=== PATIENT | female | born 1975 ===

== ENCOUNTER 2017-11-17 06:54 | Day surgery (SDC) | payer OTHER ==
[2017-11-13 14:31] VITALS: BMI 29.4
[2017-11-17] MEDS ORDERED: Propofol 10 mg/ml Inj (20 ML) ONE (08:36)
--- NOTE | 2017-11-17 11:04 | PCM.SURG1 ---
Surgeon's Initial Post Op Note - Surgeon's Notes Surgeon: Marcie Alberto MD Utilities Ground Worker: none Type of Anesthesia: General LMA Pre-Operative Diagnosis: Abnormal uterien bleeding, submucosal myoma Operative Findings: 10-12 week size uteurs, multipaou cerviox, 1.5cm submucsosal myoma, bilateral ostia visluzesd Post-Operative Diagnosis: same as above Operation Performed: Hysteroscopic myoemcotmy, fractional dilation and currettage Specimen/Specimens Removed: endocervical currettings, endometiral curretting, submucosal myoma Estimated Blood Loss: EBL {In ML}: 5 Blood Products Given: N/A Drains Used: No Drains Post-Op Condition: Good Date of Surgery/Procedure: 11/17/17 Time of Surgery/Procedure: 08:35
[2017-11-17 12:02] VITALS: BP 115/61; PULSE 75; RESP 20; TEMP 97.8; O2SAT 97
--- NOTE | 2017-11-17 23:48 | OP ---
PROCEDURE DATE: 11/17/2017 SURGEON: Marcie Alberto MD JUNK REMOVAL SPECIALIST: None. TYPE OF ANESTHESIA: General LMA. PREOPERATIVE DIAGNOSES: Abnormal uterine bleeding, submucosal myoma. POSTOPERATIVE DIAGNOSES: Abnormal uterine bleeding, submucosal myoma. OPERATIVE FINDINGS: A 10 to 12 weeks' size uterus, multiparous cervix, 1.5 cm submucosal myoma, bilateral ostia visualized. OPERATION PERFORMED: Hysteroscopic myomectomy, fractional dilatation and curettage. SPECIMEN: Endocervical curettings, endometrial curettings, submucosal myoma. ESTIMATED BLOOD LOSS: 5 mL. BLOOD PRODUCTS: None. COMPLICATIONS: None. DESCRIPTION OF PROCEDURE: The patient was taken to the operating room where she was given general anesthesia. Once it was found to be adequate, she was placed on the operating table in a dorsal supine position with the legs supported using stirrups. The patient was then prepped and draped in the usual sterile fashion. A time-out confirmed correct patient and correct procedure. Bimanual exam was performed. A Palomares retractor was placed in the anterior and posterior fornix of the vagina. Cervix was adequately visualized. A single-tooth tenaculum was placed on the anterior lip of the cervix. Endocervical curettings were obtained with a Kevorkian curette and sent to Pathology on [facility]. The uterus was then sounded 10 cm. Following this, the cervix was sequentially dilated to allow for introduction of the hysteroscope under direct visualization and using normal saline as distention media. Bilateral ostia were visualized. There was a submucosal mass noted to be 1.5 cm. Mechanical mesh device was then inserted and the mass was then resected completely carefully with good hemostasis noted. The MyoSure device was then removed. A gentle curettage was done. The specimen was sent to pathology, labeled as endometrial curettings. All instruments were removed. There was good hemostasis at then tenaculum puncture site. At the end of the procedure, all needle, sponge, and instrument counts were noted and correct x2. The patient tolerated the procedure well and transferred to the recovery room in stable condition. Marcie Alberto MD
== END 2017-11-17 12:06 | disposition home or self-care (01) ==
LOC: C.SDS 06:54
PROVIDERS: ATTEND Obstetrics & Gynecology
DX: D25.0 Submucous leiomyoma of uterus (principal); N93.9 Abnormal uterine and vaginal bleeding, unspecified; N84.0 Polyp of corpus uteri
CPT/HCPCS: 58561; 88305; J2001; J2405; J2704; J3010

== ENCOUNTER 2017-12-22 07:03 | Emergency (ER) | payer OTHER ==
[2017-12-22 07:04] VITALS: BMI 29.4
[2017-12-22 07:16] VITALS: O2SAT 98
[2017-12-22 08:12] LABS: BASO # 0.1 K/uL (0.0-0.2); BASO % 0.9 % (0.0-2.0); EOS # 0.3 K/uL (0.0-0.7); EOS % 5.4 % (0.0-4.0); HEMOGLOBIN 13.3 g/dL (11.0-16.0); LYMPH % 31.8 % (20.0-40.0); MEAN CELL VOLUME 86.4 fL (81.0-99.0); MEAN CORPUSCULAR HEMOGLOBIN 29.6 pg (27.0-31.0); MEAN CORPUSCULAR HGB CONC 34.3 g/dL (33.0-37.0); MONO # 0.5 K/uL (0.0-0.8); MONO % 7.9 % (0.0-10.0); NEUT # 3.4 K/uL (1.8-7.0); RBC 4.49 Mil/uL (3.80-5.20); RED CELL DISTRIBUTION WIDTH 14.4 % (11.5-14.5); WHITE BLOOD COUNT 6.3 K/uL (4.8-10.8)
[2017-12-22 08:19] LABS: INR 1.1; PROTHROMBIN TIME 11.5 SECONDS (9.7-12.2)
[2017-12-22 08:26] LABS: URINE BILIRUBIN NEGATIVE (NEGATIVE); URINE BLOOD 2+ (NEGATIVE); URINE CLARITY Hazy (Clear); URINE COLOR Red (YELLOW); URINE GLUCOSE (UA) NORMAL (Normal); URINE LEUKOCYTE ESTERASE NEG Leu/uL (Negative); URINE PROTEIN 2+ mg/dL (NEGATIVE); URINE UROBILINOGEN NORMAL mg/dL (0.2-1.0)
[2017-12-22 08:30] LABS: ALB/GLOB RATIO 1.3 (1.0-2.1); ALBUMIN 4.5 g/dL (3.5-5.0); ALT/SGPT 30 U/L (9-52); AST/SGOT 26 U/L (14-36); BLOOD UREA NITROGEN 12 mg/dL (7-17); GFR NON-AFRICAN AMERICAN > 60
[2017-12-22 08:35] LABS: HCG,QUALITATIVE URINE NEGATIVE (NEGATIVE)
--- NOTE | 2017-12-22 09:51 | C.PDOC ---
History Of Present Illness 42 year old female presents to the emergency department with complaints of intermittent vaginal bleeding status-post a cervical polyp removal on 11-19-17. Patient reports that over the past several days, her vaginal bleeding has worsened and she describes it as thick clots. Patient also reports pain associated with lower abdominal cramping and nausea, but denies dysuria, chest pain, shortness of breath, and diarrhea. Time Seen by Provider: 12/22/17 07:16 Chief Complaint (Nursing): Female Genitourinary History Per: Patient History/Exam Limitations: no limitations Onset/Duration Of Symptoms: Days Current Symptoms Are (Timing): Worse Location Of Pain/Discomfort: Other (lower abdomen) Quality Of Discomfort: Cramping Associated Symptoms: Other (vaginal bleeding). denies: Diarrhea, Chest Pain, Urinary Symptoms Past Medical History Reviewed: Historical Data, Nursing Documentation, Vital Signs Vital Signs: Last Vital Signs Temp 98 F 12/22/17 10:01 Pulse 78 12/22/17 10:01 Resp 18 12/22/17 10:01 BP 119/69 12/22/17 10:01 Pulse Ox 98 12/22/17 10:01 - Medical History PMH: Hypothyroidism Denies: Chronic Kidney Disease Surgical History: Appendectomy Family History: States: No Known Family Hx - Social History Hx Alcohol Use: No Hx Substance Use: No Review Of Systems Except As Marked, All Systems Reviewed And Found Negative. Cardiovascular: Negative for: Chest Pain Respiratory: Negative for: Shortness of Breath Gastrointestinal: Positive for: Abdominal Pain (cramping). Negative for: Diarrhea Genitourinary: Negative for: Dysuria Physical Exam - Physical Exam Appears: Non-toxic, No Acute Distress Skin: Warm, Dry Head: Atraumatic, Normacephalic Eye(s): bilateral: Normal Inspection Neck: Normal, Supple Chest: Symmetrical Cardiovascular: Rhythm Regular, No Murmur Respiratory: Normal Breath Sounds, No Rales, No Rhonchi, No Wheezing Gastrointestinal/Abdominal: Soft, No Tenderness, No Guarding, No Rebound Neurological/Psych: Oriented x3, Normal Speech, Normal Cognition ED Course And Treatment - Laboratory Results Result Diagrams: 12/22/17 08:02 12/22/17 08:02 O2 Sat by Pulse Oximetry: 98 (RA) Pulse Ox Interpretation: Normal Progress Note: Plan: Blood Bank Type and Screen. CMP. CBC. PTT. Prothrombin Time. Toradol 30mg IVP. HCG Qualitative Urine. Urinalysis Disposition - Disposition Referrals: Marcie Alberto MD [Staff Provider] - Disposition: HOME/ ROUTINE Disposition Time: 09:49 Condition: GOOD Additional Instructions: Follow up with the OBGYN today without fail. return if worsened. Instructions: Heavy Periods (DC) Forms: [employer] ([place]ayan) - Clinical Impression Clinical Impression: Menometrorrhagia - PA / [employer]ATH[employer] / Resident Statement MD/DO has reviewed & agrees with the documentation as recorded. - Scribe Statement The provider has reviewed the documentation as recorded by the Scribe (Tomasz Churchill) All medical record entries made by the Scribe were at my direction and personally dictated by me. I have reviewed the chart and agree that the record accurately reflects my personal performance of the history, physical exam, medical decision making, and the department course for this patient. I have also personally directed, reviewed, and agree with the discharge instructions and disposition.
[2017-12-22 10:01] VITALS: BP 119/69; PULSE 78; RESP 18; TEMP 98
== END 2017-12-22 10:01 | disposition home or self-care (01) ==
LOC: C.ER 07:03
DX: N92.1 Excessive and frequent menstruation with irregular cycle (principal)
CPT/HCPCS: 80053; 81001; 84703; 85025; 85610; 85730; 86850; 86900; 96374; 99285; J1885

== ENCOUNTER 2018-01-23 06:06 | Inpatient (IN) | payer OTHER ==
[2018-01-23] MEDS ORDERED: ceFAZolin IV 1 gm in Dextrose 1 GM/50 ML BAG IVPB ONE ×2 (07:47→08:01)
[2018-01-23] MEDS ORDERED: Bupivacaine 0.25% 20 ML INJ IJ ONE (07:47)
[2018-01-23] MEDS ORDERED: Midazolam 2 MG/2 ML VIAL ONE (07:57)
[2018-01-23] MEDS ORDERED: Propofol 10 mg/ml Inj (20 ML) ONE (07:58)
[2018-01-23] MEDS ORDERED: Bupivacaine-Epi 0.5%-1:200,000 PF Inj ONE (08:11)
[2018-01-23] MEDS ORDERED: Rocuronium 10 mg/ml (5 ml) ONE ×2 (08:26→10:30)
[2018-01-23] MEDS ORDERED: Lactated Ringer's 1,000 ML IV ONE ×2 (10:50→11:30)
[2018-01-23] MEDS ORDERED: Neostigmine Methylsulfate 3mg/3ml Syringe IV ONE (10:52)
[2018-01-23] MEDS ORDERED: Oxycodone/Acetaminophen 5/325 mg Tab PO PRN ×2 (10:55)
[2018-01-23] MEDS ORDERED: Lactated Ringer's 1,000 ML IV SCH (11:00)
[2018-01-23] MEDS: HYDROmorphone 0.5 mg/0.5 ml ISec IVP PRN ×3 (11:22→12:00)
[2018-01-23] MEDS ORDERED: HYDROmorphone 0.5 mg/0.5 ml ISec ONE (11:24)
[2018-01-23] MEDS: Simethicone 80 mg Chewtab PO SCH ×2 (14:06→22:02)
[2018-01-23] MEDS: cefOXitin IV 1 gm in Dextrose 1 GM/50 ML BAG IVPB SCH ×2 (14:15→22:56)
--- NOTE | 2018-01-23 15:10 | PCM.OP ---
Operative Report - Operative Report Date of Surgery/Procedure: 01/23/18 Time of Surgery/Procedure: 08:00 Surgeon: lindsey Denson md Lift Team Technician: Duane Davalos md Anesthesia/Sedation: GET Pre-Operative Diagnosis: pelvic pain , pelvic adhesions , fibroid uterus ,abnormal bleeding Post-Operative Diagnosis: pelvic pain , pelvic adhesions , fibroid uterus ,abnormal bleeding Indication for Surgery: called into the operative room to assist Dr. davalos with difficult dissection during hysterectomy . Dr davalos had already docled the da scottie robot and performed tthe cystocopy and ureteral catheterization Operative Findings: pelvic adhesions Procedure/Operation Description: robotic da scottie bilateral ureterolysis. called into the operative room to assist Dr. davalos with difficult dissection during hysterectomy . Dr davalos had already docled the da scottie robot and performed tthe cystocopy and ureteral catheterizatio. At this point, we proceeded with the left ureterolysis. The ureter appeared to dilated and it was clearly identified utilizing fluorescent technology. An incision was made on the peritoneum at the top of the pelvic brim, and incision was then carried down all the way opening the peritoneum and all the way down from the pelvic brim all the way down to the ovarian fossa extending the incision below the ovary. It was a progressive dissection where the ureter was progressively lateralized and the peritoneum medialized, thus freeing the ureter all the way down to the crossing of the uterine vessels. After this was done and the ureter was freed and lateralized and a large area of peritoneum, which had been opened up was excised and sent to pathology. At this point, after ureter had been identified, we were able to elevate the ovary and dissect it from the pelvic side wall in the ovarian fossa. At this point, we proceeded with the left ovariolysis. The ovary was gently dissected and elevated off the ovarian fossa. At this point, we proceeded with the right ureterolysis. The ureter was identified and again utilizing florescent technology, the retroperitoneal space was entered and a full dissection was performed entering the retroperitoneal space and dissecting the ureter, removing the ureter laterally and the peritoneum medially. A full dissection was performed all the way down to the ovarian fossa, on the crossing of the uterine arteries. At this point, we proceeded with a right ovariolysis. The ovary was progressively elevated, and the ovary was finally elevated. At this point the robotic console was handed back to Dr. Davalos Estimated Blood Loss: 10cc Complications: none Discharge & Condition: pt to recovery inexcellent condition
[2018-01-23 21:07] VITALS: RESP 20
[2018-01-24] MEDS: Simethicone 80 mg Chewtab PO SCH ×3 (05:57→21:30)
[2018-01-24] MEDS: cefOXitin IV 1 gm in Dextrose 1 GM/50 ML BAG IVPB SCH (06:35)
[2018-01-24 08:41] LABS: MEAN CELL VOLUME 86.6 fL (81.0-99.0); MEAN CORPUSCULAR HEMOGLOBIN 29.3 pg (27.0-31.0); MEAN CORPUSCULAR HGB CONC 33.8 g/dL (33.0-37.0); MEAN PLATELET VOLUME 8.9 fL (7.2-11.7); RBC 3.82 Mil/uL (3.80-5.20); RED CELL DISTRIBUTION WIDTH 13.7 % (11.5-14.5)
[2018-01-24 08:45] LABS: ALB/GLOB RATIO 1.2 (1.0-2.1); ALBUMIN 3.3 g/dL (3.5-5.0); ALT/SGPT 22 U/L (9-52); AST/SGOT 16 U/L (14-36); BLOOD UREA NITROGEN 8 mg/dL (7-17); CALCIUM 8.9 mg/dl (8.6-10.4); GFR NON-AFRICAN AMERICAN > 60; HEMOGLOBIN 11.2 g/dL (11.0-16.0); WHITE BLOOD COUNT 11.4 K/uL (4.8-10.8)
--- NOTE | 2018-01-24 12:39 | CP.PCM.DIS ---
Provider - Provider Date of Admission: 01/23/18 10:53 Attending physician: Marcie Alberto MD Time Spent in preparation of Discharge (in minutes): 20 Diagnosis - Discharge Diagnosis (1) History of robot-assisted laparoscopic hysterectomy Status: Acute Priority: Medium Hospital Course - Lab Results Lab Results: Most Recent Lab Values WBC 11.4 K/uL (4.8-10.8) H D 01/24/18 08:24 RBC 3.82 Mil/uL (3.80-5.20) 01/24/18 08:24 Hgb 11.2 g/dL (11.0-16.0) D 01/24/18 08:24 Hct 33.0 % (34.0-47.0) L 01/24/18 08:24 MCV 86.6 fL (81.0-99.0) 01/24/18 08:24 MCH 29.3 pg (27.0-31.0) 01/24/18 08:24 MCHC 33.8 g/dL (33.0-37.0) 01/24/18 08:24 RDW 13.7 % (11.5-14.5) 01/24/18 08:24 Plt Count 218 K/uL (130-400) 01/24/18 08:24 MPV 8.9 fL (7.2-11.7) 01/24/18 08:24 Sodium 138 mmol/L (132-148) 01/24/18 08:24 Potassium 3.9 mmol/L (3.6-5.2) 01/24/18 08:24 Chloride 105 mmol/L (98-107) 01/24/18 08:24 Carbon Dioxide 25 mmol/L (22-30) 01/24/18 08:24 Anion Gap 12 (10-20) 01/24/18 08:24 BUN 8 mg/dL (7-17) 01/24/18 08:24 Creatinine 0.7 mg/dL (0.7-1.2) 01/24/18 08:24 Est GFR ( Amer) > 60 01/24/18 08:24 Est GFR (Non-Af Amer) > 60 01/24/18 08:24 Random Glucose 110 mg/dL (65-105) H 01/24/18 08:24 Calcium 8.9 mg/dl (8.6-10.4) 01/24/18 08:24 Total Bilirubin 0.4 mg/dL (0.2-1.3) 01/24/18 08:24 AST 16 U/L (14-36) 01/24/18 08:24 ALT 22 U/L (9-52) 01/24/18 08:24 Alkaline Phosphatase 75 U/L (38-126) 01/24/18 08:24 Total Protein 6.0 g/dL (6.3-8.3) L 01/24/18 08:24 Albumin 3.3 g/dL (3.5-5.0) L D 01/24/18 08:24 Globulin 2.7 gm/dL (2.2-3.9) 01/24/18 08:24 Albumin/Globulin Ratio 1.2 (1.0-2.1) 01/24/18 08:24 Blood Type O POSITIVE 01/23/18 07:20 Antibody Screen Negative 01/23/18 07:20 - Hospital Course Hospital Course: POD # 1 Pt Stable and Satisfactory condition and recovery Pain seemed controlled on present IV meds and switching to po medication - Date & Time of H&P Date of H&P: 01/23/18 Time of H&P: 06:00 Discharge Exam - Respiratory Exam Respiratory Exam: NORMAL BREATHING PATTERN, UNREMARKABLE - Cardiovascular Exam Cardiovascular Exam: REGULAR RHYTHM - GI/Abdominal Exam GI & Abdominal Exam: Distended (C/W Laparoscopic procedure. Incisions clean and dry) - Neurological Exam Neurological exam: Alert, Oriented x3 - Skin Skin Exam: Normal Color, Warm Discharge Plan - Discharge Medications Prescriptions: Ibuprofen [Motrin Tab] 600 mg PO TID PRN 5 Days #30 tab PRN Reason: Pain, Mild (1-3) oxyCODONE/Acetaminophen [Percocet 5/325 mg Tab] 2 tab PO Q4H PRN #20 tab PRN Reason: Pain, Severe (8-10) - Follow Up Plan Patient education suggested?: Yes
[2018-01-24 16:35] VITALS: PULSE 81; TEMP 98.1
[2018-01-24 18:06] VITALS: BP 113/54; O2SAT 99
--- NOTE | 2018-01-26 07:08 | OP ---
PROCEDURE DATE: 01/23/2018 SURGEON: Marcie Alberto MD ASSISTANTS: Chris Denson MD and AKOSUA Dwyer PREOPERATIVE DIAGNOSES: Pelvic pain, dysmenorrhea, abnormal uterine bleeding, uterine fibroids, rule out interstitial cystitis, adenomyosis. POSTOPERATIVE DIAGNOSES: Pelvic pain, dysmenorrhea, abnormal uterine bleeding, uterine fibroids, rule out interstitial cystitis, bilateral hydroureter,adenomyosis. PROCEDURES PERFORMED: Exam under anesthesia, cystoscopy, bilateral ureteral catheterization, injection of IC-Green, operative robotic da Angela laparoscopy, hysterectomy with bilateral salpingectomy, lysis of adhesions. Separative operative report will be dictated by Dr. Chris Denson. He was called in for the procedure of bilateral ureterolysis. ANESTHESIA: General endotracheal. ESTIMATED BLOOD LOSS: 25 mL. INPUT AND OUTPUT: Adequate. SPECIMENS REMOVED: Uterus, cervix, right and left fallopian tubes. All were sent to Pathology. INDICATION FOR THE PROCEDURE: The patient is a 42-year-old para 2 with a history of chronic pelvic pain and abnormal uterine bleeding that failed medical therapy and needed surgical therapy that desired definite surgical management. Risks, benefits, alternatives, and indications were discussed with the patient. The patient desired definitive surgical therapy. The exam under anesthesia revealed a large uterus about 20-week size and gestation. It also revealed a normal sized bladder with no evidence of trigonitis, tumor, any other lesions, or endometrial findings of the bladder. The upper abdomen appeared to be normal with normal liver, normal ascending and descending colon, normal appendix. Pelvis reveals significant adhesions of the uterus with a large adenomyotic appearing uterus. There were normal right and left ovaries, normal right and left fallopian tubes. The ureter, the left adnexa appeared to be adherent. At this point, the patient was taken to the operating room, placed in the dorsal supine position. The patient was prepped and draped in the usual normal sterile fashion. A time-out confirmed correct patient and correct procedure. Extreme attention was made in padding the patient every prone area to pressure. Also extreme attention was placed not to overextend or overflex the hips of the patient. A time-out was taken according to the hospital policy. The procedure was started. First part of the procedure involved cystoscopy. The cystoscope was inserted into the bladder, 200 mL of fluid was drained. The bladder appeared to be free of lesions and tumors. Both ureteral ostia were within the anatomic position. The left ureter was cannulated with a 5-Cypriot open-ended catheter all the way to the distal ureter, 5 mL of IC-Green that was injected. Similarly, the contralateral ureter was also cannulated. Once this was done, 5 mL of IC-Green was injected. At this point, cystoscope was removed. A 16-Cypriot Lora was inserted into the bladder. At this point, a speculum was then placed in the vagina. The anterior lip of the cervix was grasped with uterine manipulator and grasped into uterus using a large Vcare without any problems. After going in, attention was turned to the abdomen open laparoscopy was performed. An incision was made in the umbilicus in an open laparoscopy technique excising the fascia and then entered the peritoneum in a similar fashion. Trocar was inserted under direct visualization. The abdomen was insufflated under direct visualization. The shorter ports were inserted in the left upper quadrant and right upper quadrant. The left upper quadrant had an 8 mm size incision for the assisting port. The findings were described above. the da Angela XI robot was docked. Next, we proceeded to do lysis of adhesions of the adnexa to the side wall. Following this after elevating the uterus, there were adhesions noted. Dr. Denson was called in for lysis of adhesions and for bilateral ureterolysis. Please refer to separate operative dictation note. Once the uterus was free of adhesions, the right ovary was free of adhesions, we proceeded with the hysterectomy. The round ligament was first coagulated and ligated on the left hand side progressively, and the anterior bladder flap was developed and making the incision progressively dissecting the bladder to the anterior part of the cervix. Dissection was continued on the left side where the utero-ovarian ligament was cut and progressively dissected all the way down to the uterine vessel all the way down to the left hand side. At this point, the utero-ovarian vessel ligament was then ligated and the distal end of the fallopian tube was then ligated along the mesosalpinx. The fallopian tube was then removed. The ureter was kept inline as the dissection continued utilizing the fluorescent technology all the way down to the broad ligament. Once it was incised, the round ligament was also incised. On the other side, a bladder flap was developed anteriorly. At this point, bladder flap was developed. The uterine vessels were ligated first on the right hand side always with extreme care to visualize the right ureter under direct visualization using fluorescent as they were cut creating a pedicle. Similarly, on the left hand side, they were also coagulated first and then cut therefore, freeing the uterus and freeing it from its vascular components. Throughout this time, the ureter was always kept visualized using fluorescent technology. At this point, because of the large size of the uterus . The alternative fallopian tube was then cauterize at the cornu region and dissected from the fimbriated end using bipolar device. The fallopian tube was then removed. Colpotomy was then performed carefully utilizing the Vcare. Careful incision was then made. The specimen was then removed through the vagina of the cervix and the uterus. There was good hemostasis was noted. The vaginal cuff was then closed with a running stitch of 2-0 PDS in two separate layers. At this point, hemostasis of the cuff appeared to be intact. All pedicles were inspected. Attention was then turned to the left hand side. Good hemostasis was noted. The da Angela robot was then undocked. The skin incisions were all closed. All instruments were removed. Good hemostasis was noted. All instruments, lap, and needle counts were noted to be correct x2. The skin incision was closed with a 4-0 Monocryl in a running subcuticular fashion, and then the Lora catheter was then removed. The cystoscopy was then re-performed. The bilateral ureteral jets were patent. Following this, a new Lora catheter was placed. At the end of the procedure, all needle, sponge, and instrument counts were noted and correct x2. The patient tolerated the procedure well and was transferred to the recovery room in stable condition. Marcie Alberto MD
== END 2018-01-24 21:30 | disposition home or self-care (01) | DRG 742 ==
LOC: C.SDS 06:06 → C.9S 10:53 → C.4M 11:15
PROVIDERS: ADMIT Obstetrics & Gynecology; ATTEND Obstetrics & Gynecology
PROC: 0TN68ZZ Release Right Ureter, Via Natural or Artificial Opening Endoscopic (ICD-10-PCS; 2018-01-23)
PROC: 0T788DZ Dilation of Bilateral Ureters with Intraluminal Device, Via Natural or Artificial Opening Endoscopic (ICD-10-PCS; 2018-01-23)
PROC: 0UB78ZZ Excision of Bilateral Fallopian Tubes, Via Natural or Artificial Opening Endoscopic (ICD-10-PCS; 2018-01-23)
PROC: 8E0W8CZ Robotic Assisted Procedure of Trunk Region, Via Natural or Artificial Opening Endoscopic (ICD-10-PCS; 2018-01-23)
PROC: 0TJB8ZZ Inspection of Bladder, Via Natural or Artificial Opening Endoscopic (ICD-10-PCS; 2018-01-23)
PROC: 0UT9FZZ Resection of Uterus, Via Natural or Artificial Opening With Percutaneous Endoscopic Assistance (ICD-10-PCS; principal; 2018-01-23 07:45)
PROC: 0TN78ZZ Release Left Ureter, Via Natural or Artificial Opening Endoscopic (ICD-10-PCS; 2018-01-23 07:45)
DX: D25.9 Leiomyoma of uterus, unspecified (principal); N13.4 Hydroureter; N94.6 Dysmenorrhea, unspecified; N30.10 Interstitial cystitis (chronic) without hematuria; N71.1 Chronic inflammatory disease of uterus; N80.0 Endometriosis of uterus; N73.6 Female pelvic peritoneal adhesions (postinfective)